=== PATIENT | male | born 1950 | race Caucasian/White ===

== ENCOUNTER 2016-09-10 09:24 | Day surgery (SDC) | payer OTHER, BC ==
[~2016-09-10] VITALS: Ht 175.3 cm; Wt 104.3 kg
[~2016-09-10 09:24] MED LIST: B COMPLETE1 EACH PO; CALCIUM CITRAT200 MG PO; CENTRUM SILVER1 EAC1 PO; CYCLOBENZAPRINE10 MG PO; CYMBALTA60 MG PO; ENDOCET 5-3251 EACH PO; HYDROCODON-ACE1 EAC7 PO; MULTI VITAMIN1 EACH PO; NEURONTIN400 MG PO; ULTRAM50 MG PO; ZANAFLEX4 M1 PO
== END 2016-09-10 11:28 | disposition home or self-care (01) ==
LOC: PAIN 09:24 → SDC 10:00 → PAIN 10:00
DX: M51.16 Intervertebral disc disorders with radiculopathy, lumbar region (principal); M79.1 Myalgia; M53.3 Sacrococcygeal disorders, not elsewhere classified; F41.8 Other specified anxiety disorders
CPT/HCPCS: J1100; J2250; J3010

== ENCOUNTER 2016-12-24 09:55 | Day surgery (SDC) | payer OTHER, BC ==
[~2016-12-24] VITALS: Ht 175.3 cm; Wt 104.3 kg
[~2016-12-24 09:55] MED LIST changes: +GABAPENTIN600 MG PO
== END 2016-12-24 11:15 | disposition home or self-care (01) ==
LOC: PAIN 09:55 → SDC 10:15 → PAIN 10:15
DX: M47.26 Other spondylosis with radiculopathy, lumbar region (principal); M79.1 Myalgia; M53.3 Sacrococcygeal disorders, not elsewhere classified; Z79.891 Long term (current) use of opiate analgesic
CPT/HCPCS: J1030; J1100; J2250; J3010; S0020

== ENCOUNTER 2017-03-13 12:45 | Day surgery (SDC) | payer OTHER, BC ==
[~2017-03-13] VITALS: Ht 175.3 cm; Wt 104.3 kg
== END 2017-03-13 15:05 | disposition home or self-care (01) ==
LOC: PAIN 12:45 → SDC 13:15 → PAIN 15:05
DX: M47.26 Other spondylosis with radiculopathy, lumbar region (principal); M79.1 Myalgia; M53.3 Sacrococcygeal disorders, not elsewhere classified; Z87.891 Personal history of nicotine dependence; Z86.718 Personal history of other venous thrombosis and embolism; Z79.891 Long term (current) use of opiate analgesic
CPT/HCPCS: J1100; J2250; J3010